=== PATIENT | female | born 1975 | race Two or more races ===

== ENCOUNTER 2022-11-07 13:23 | Outpatient (CLI) | payer OTHER | END 2022-11-07 13:24 | disposition home or self-care (01) | LOC: CSHLAB 13:23 | PROVIDERS: ATTEND Obstetrics & Gynecology | DX: Z01.818 Encounter for other preprocedural examination (principal); N92.0 Excessive and frequent menstruation with regular cycle | CPT/HCPCS: 80048; 84703; 85027; 86850; 86900; 86901; 93005; 93010 ==